=== PATIENT | female | born 1975 | race African-American/Black ===

== ENCOUNTER 2018-01-13 10:30 | Day surgery (SDC) | payer OTHER ==
[2018-01-12 10:17] VITALS: BMI 33.9
[2018-01-13] MEDS ORDERED: methylPREDNISolone ACET (DEPO) 40 MG/1 ML VIAL ONE (14:37)
[2018-01-13] MEDS ORDERED: BUPIVACAINE HCL/PF 2.5 MG/ML - 30 ML VIAL IJ ONE (14:37)
[2018-01-13] MEDS ORDERED: MIDAZOLAM HCL 2 MG/2 ML SINGLE DOSE VIAL ONE (14:47)
[2018-01-13] MEDS ORDERED: PROPOFOL 20 ML ONE (14:47)
[2018-01-13] MEDS ORDERED: ONDANSETRON 4 MG/2 ML VIAL ONE ×2 (15:06→16:35)
[2018-01-13] MEDS ORDERED: DEXAMETHASONE SOD PHOSPHATE 4 MG/1 ML VIAL ONE (15:06)
[2018-01-13] MEDS ORDERED: ceFAZolin SODIUM 1 GM VIAL ONE (15:10)
[2018-01-13] MEDS ORDERED: BUPIVACAINE HCL/PF 0.25% (2.5MG/ML) 10 ML VIAL IJ ONE (15:23)
[2018-01-13] MEDS ORDERED: KETOROLAC TROMETHAMINE 30 MG/1 ML VIAL ONE (15:26)
[2018-01-13] MEDS ORDERED: ONDANSETRON 4 MG/2 ML VIAL IVPUSH PRN (15:55)
[2018-01-13] MEDS ORDERED: oxyCODONE HCL 5 MG TABLET PO PRN (15:55)
[2018-01-13] MEDS ORDERED: LACTATED RINGERS SOLUTION 1,000 ML IV SCH (16:00)
[2018-01-13 16:56] VITALS: TEMP 97.8
[2018-01-13] MEDS ORDERED: oxyCODONE HCL 5 MG TABLET ONE (17:18)
[2018-01-13 19:59] VITALS: BP 128/74; PULSE 69
--- NOTE | 2018-01-15 23:49 | OP ---
DATE OF OPERATION: 01/13/2018 SURGEON: Kendrick Crenshaw MD ICE CREAM SCOOPER: GERARDO Sommers PREOPERATIVE DIAGNOSIS: 1. Right knee mediolateral meniscal tear. 2. Right knee cartilage injury. 3. Right knee synovitis. POSTOPERATIVE DIAGNOSIS: 1. Right knee mediolateral meniscal tear. 2. Right knee cartilage injury. 3. Right knee synovitis. PROCEDURE: 1. Right knee arthroscopy and partial meniscectomy, CPT code 70988. 2. Right knee arthroscopy with chondroplasty and abrasioplasty, CPT code 22519. 3. Right knee arthroscopy with synovectomy, major, CPT code 53099. FINDINGS: 1. Medial meniscus body and posterior horn tear. 2. Lateral meniscus body and anterior horn tear with small posterior horn tear. 3. Synovitis of patellofemoral and mediolateral notch area. 4. ACL and PCL intact. 5. Central grade 1-2 cartilage injury of patellofemoral and femoral trochlea. 6. Anterior thickened scar tissue of patellofemoral joint. PROCEDURE: Informed consent was obtained. The patient came to the operating room, where the lower extremity was prepped and draped in a sterile fashion. A tourniquet was placed on the upper thigh, but not inflated. Using standard arthroscopic technique, a lateral incision and portal was made to allow for introduction of the camera into the suprapatellar bursa. This was then taken to the medial joint line, where under direct visualization, a medial incision and portal was made. Excessive synovium noted in the medial, lateral and patellofemoral and notch area was removed by an up-biter, shaver and Bovie cautery. This was found to bring in inflammatory tissue into the joint surface, a source of pain and dysfunction. Probing of the medial and lateral meniscus found tears, as described in the findings. These were removed with the up-biter and shaver and taken back to a stable rim. Grade 2 to 3 degenerative changes were treated with a chondroplasty, removing all flaking surfaces with low-setting Bovie along the periphery to prevent further flaking. Grade 4 changes, as noted, were treated with an abrasioplasty, creating a bleeding surface at the bone/cartilage interface. Aggressive debridement with shaver/robin created bleeding surface. Microfracture also done when indicated in findings All areas of the knee were once again reexamined. The knee was then drained and a single suture was placed in all portals. A sterile dressing was placed and the patient was transferred to the recovery room without complication. KENDRICK CRENSHAW M.D. [id number]
--- NOTE | 2018-01-18 15:41 | PATH ---
Surgical Pathology Report Patient Name: DIVINA BROWN [facility]. Rec. #: [id number] /Age/Gender: 1975 (Age: 42) / F Account: [id number] Location: [facility] Taken: 01/13/2018 Received: 01/13/2018 Reported: 01/18/2018 Physicians: Kendrick Mendieta M.D. Specimen(s) Received RIGHT KNEE SHAVINGS Clinical History Right knee internal derangement Final Diagnosis KNEE, RIGHT, ARTHROSCOPIC SHAVINGS: FIBROCARTILAGINOUS AND FIBROSYNOVIAL TISSUE. Electronically Signed Nereida Charles M.D. Gross Description Received in formalin, labeled "right knee shavings," is a 3.3 x 2.2 x 0.3 cm. aggregate of stoenr-yellow soft tissue fragments. The specimen is entirely submitted in one cassette. /01/16/2018 saudi01/16/2018
== END 2018-01-13 18:00 | disposition home or self-care (01) ==
LOC: FASU 10:30
PROVIDERS: ATTEND Orthopaedic Surgery
PROC: 0SBC4ZZ Excision of Right Knee Joint, Percutaneous Endoscopic Approach (ICD-10-PCS; 2018-01-13)
PROC: 0SBC4ZZ Excision of Right Knee Joint, Percutaneous Endoscopic Approach (ICD-10-PCS; 2018-01-13)
PROC: 0SBC4ZZ Excision of Right Knee Joint, Percutaneous Endoscopic Approach (ICD-10-PCS; principal; 2018-01-13 14:56)
DX: S83.241A Other tear of medial meniscus, current injury, right knee, initial encounter (principal); S83.281A Other tear of lateral meniscus, current injury, right knee, initial encounter; S83.8X1A Sprain of other specified parts of right knee, initial encounter; M65.861 Other synovitis and tenosynovitis, right lower leg; X58.XXXA Exposure to other specified factors, initial encounter; Y93.9 Activity, unspecified; Y92.9 Unspecified place or not applicable
CPT/HCPCS: 84703; 88304-TC; 94760